=== PATIENT | female | born 1970 | race Caucasian/White ===

== ENCOUNTER 2025-01-20 08:38 | Day surgery (SDC) | payer BC ==
[2025-01-20] VITALS (15 sets, daily range): BP systolic 93–127; BP diastolic 50–73
[~2025-01-20] VITALS: Ht 157.5 cm; Wt 62.7 kg
--- NOTE | 2025-01-20 08:33 | NUR ---
01/20/25 0833 Nayeli Malone *YELLOW/GREEN [id number]*
[~2025-01-20 08:38] MED LIST: ACET500 PO; BUDE10.22 INH; CENTRUM SILVER1 EAC2 PO; CONEST.625 PO; CONEST.9 PO; DHEA PO; DIPH25 PO; ESTRADIOL1 MG PO; FEXPSEER PO; Flonase 0.05% N16 GM; IBUP600 PO; MAGNESIUM OXID500 MG PO; MONT10T PO; Methocarbamol500 MG PO; Norco 5-325 Ta1 EACH PO; PROMETRIUM; Sudogest60 MG PO
--- NOTE | 2025-01-20 09:11 | NUR ---
Ambulatory in Day Surgery History, Chart, Medications and Allergies reviewed before start of procedure.Pre-Op teaching done. Pt verbalizes understanding. Patient States Post-Procedure ride home has been arranged.
--- NOTE | 2025-01-20 10:15 | NUR ---
Patient up to Ambulate independently. Gait steady. Discharge instructions reviewed with patient. Patient verbalizes understanding. Copy given to patient to take home. Discharged via wheelchair to private car for ride home.
== END 2025-01-20 10:16 | disposition home or self-care (01) ==
LOC: ORSCMMR 08:38 → ORD 09:30 → ORSCMMR 09:30
PROVIDERS: Internal Medicine Gastroenterology
PROC: 0DJD8ZZ Inspection of Lower Intestinal Tract, Via Natural or Artificial Opening Endoscopic (ICD-10-PCS; principal; 2025-01-20 09:30)
DX: Z12.11 Encounter for screening for malignant neoplasm of colon (principal); Z83.719 Family history of colon polyps, unspecified; J45.909 Unspecified asthma, uncomplicated; Z79.899 Other long term (current) drug therapy
CPT/HCPCS: J2704; J7120